=== PATIENT | female | born 1955 | race African-American/Black ===

== ENCOUNTER 2021-09-18 17:44 | Inpatient (IN) | payer MEDICARE ==
[2021-09-18 19:04] LABS: #Eosinphils 0.1 thou/uL (0.0-0.7); #Lymphocytes 2.1 thou/uL (1.20-3.40); #Monocytes 0.5 thou/uL (0.11-0.59); %Basophils 0.5 % (0.0-1.0); %Eosinophils 1.2 % (0.0-10.0); %Lymphocytes 23.7 % (21.0-51.0); %Neutrophils 68.5 % (42.0-75.0); Hemoglobin 9.2 g/dL (12.0-16.0); Mean Corpuscular HGB CONC 31.6 g/dL (32.0-36.0); Mean Corpuscular Hemoglobin 30.5 pg (27.0-31.0); Mean Corpuscular Volume 96.4 fL (78.0-98.0); Platelet Count 322 thou/uL (130-400); Red Blood Cell (RBC) Count 3.01 mill/uL (4.20-5.40); White Blood Cell (WBC) Count 8.7 thou/uL (4.8-10.8)
[2021-09-18 19:14] LABS: PTT 33.3 sec (22.9-36.1)
[2021-09-18 19:15] LABS: Prothrombin Time 14.6 sec (12.0-14.7)
[2021-09-18 19:16] LABS: INR-International Normal Ratio 1.1
[2021-09-18 19:38] LABS: Albumin 4.2 g/dL (3.4-4.8)
[2021-09-18 19:39] LABS: Chloride 117 mmol/L (98-107); Sodium 140 mmol/L (136-145)
[2021-09-18 19:40] LABS: Calcium 9.5 mg/dL (7.8-10.44)
[2021-09-18 19:41] LABS: Globulin 3.5 g/dL (2.4-3.5); Glucose 134 mg/dL (80-115); Protein, Total 7.7 g/dL (5.8-8.1)
[2021-09-18 19:42] LABS: Anion Gap 21 mmol/L (10-20); Bilirubin, Total 0.5 mg/dL (0.2-1.2); Carbon Dioxide 10 mmol/L (23-31)
[2021-09-18 19:44] LABS: Alkaline Phosphatase 59 U/L (40-110); Calc. Creatinine Clearance 0 mL/min (70-130)
[2021-09-18 19:45] LABS: BUN (Urea Nitrogen) 99 mg/dL (9.8-20.1)
[2021-09-18 19:46] LABS: ALT (SGPT) 15 U/L (8-55); AST (SGOT) 18 U/L (5-34)
[2021-09-18 19:47] LABS: Potassium 7.7 mmol/L (3.5-5.1)
[2021-09-18] MEDS ORDERED: Insulin Regular 300 UNITS/3 ML VIAL ONE (20:11)
[2021-09-18] MEDS ORDERED: Calcium Chloride 1 GM/10 ML Abboject SYRINGE ONE (20:11)
[2021-09-18] MEDS ORDERED: Sodium Bicarb 50 MEQ/50 ML Abboject 8.4% SYRINGE ONE (20:11)
[2021-09-18] MEDS ORDERED: Dextrose 50% Abboject 50 ML SYRINGE ONE (20:11)
[2021-09-18] MEDS ORDERED: Sodium Chloride 0.9% 1,000 ML IV SCH (20:45)
[2021-09-18] MEDS ORDERED: Ondansetron ODT 4 MG TAB PO PRN (21:50)
[2021-09-18] MEDS ORDERED: hydrALAZINE 20 MG/ML VIAL SLOW IVP PRN (21:50)
[2021-09-18] MEDS ORDERED: Dextrose 5% in Water 1,000 ML IV PRN (21:50)
[2021-09-18] MEDS ORDERED: Ondansetron PF 4 MG/2 ML Vial IVP PRN (21:50)
[2021-09-18] MEDS ORDERED: Acetaminophen 500 MG TAB PO PRN (21:50)
[2021-09-18] MEDS ORDERED: HumaLOG 300 UNITS/3 ML VIAL SC PRN (21:50)
[2021-09-18] MEDS ORDERED: Dextrose 50% Abboject 50 ML SYRINGE SLOW IVP PRN (21:50)
[2021-09-18 23:10] VITALS: BMI 20.9
[2021-09-19 00:22] LABS: Potassium 6.1 mmol/L (3.5-5.1)
[2021-09-19 00:45] LABS: Amphetamine Not Detected (NotDetected); Barbiturates Screen Not Detected (NotDetected); Benzodiazepine Screen Detected (NotDetected); Cocaine Metabolite Screen Not Detected (NotDetected); Methadone Not Detected (NotDetected); Methamphetamine Not Detected (NotDetected); Opiate Screen Not Detected (NotDetected); Oxycodone Screen Not Detected (NotDetected); Phencyclidine (PCP) Not Detected (NotDetected); THC/Cannabinoid Screen Not Detected (NotDetected); Tricyclic Screen Not Detected (NotDetected)
[2021-09-19] MEDS: Sodium Chloride 0.9% 1,000 ML IV SCH ×2 (00:52→06:27)
[2021-09-19 07:31] LABS: #Eosinphils 0.1 thou/uL (0.0-0.7); #Lymphocytes 1.5 thou/uL (1.20-3.40); #Monocytes 0.9 thou/uL (0.11-0.59); %Basophils 0.2 % (0.0-1.0); %Eosinophils 0.9 % (0.0-10.0); %Lymphocytes 14.7 % (21.0-51.0); %Monocytes 8.1 % (0.0-10.0); %Neutrophils 76.1 % (42.0-75.0); Hemoglobin 8.5 g/dL (12.0-16.0); Mean Corpuscular HGB CONC 32.3 g/dL (32.0-36.0); Mean Corpuscular Hemoglobin 31.5 pg (27.0-31.0); Mean Corpuscular Volume 97.5 fL (78.0-98.0); Mean Platelet Volume 6.3 fL (7.4-10.4); Platelet Count 342 thou/uL (130-400); RBC Distribution Width 11.9 % (11.5-14.5); Red Blood Cell (RBC) Count 2.71 mill/uL (4.20-5.40); White Blood Cell (WBC) Count 10.5 thou/uL (4.8-10.8)
[2021-09-19 07:46] LABS: ALT (SGPT) 15 U/L (8-55); AST (SGOT) 17 U/L (5-34); Alkaline Phosphatase 60 U/L (40-110); Anion Gap 18 mmol/L (10-20); BUN (Urea Nitrogen) 78 mg/dL (9.8-20.1); Bilirubin, Total 0.4 mg/dL (0.2-1.2); Calc. Creatinine Clearance 23 mL/min (70-130); Carbon Dioxide 10 mmol/L (23-31); Chloride 120 mmol/L (98-107); Globulin 3.9 g/dL (2.4-3.5); Glucose 177 mg/dL (80-115); Potassium 6.2 mmol/L (3.5-5.1); Protein, Total 7.9 g/dL (5.8-8.1); Sodium 142 mmol/L (136-145)
[2021-09-19] MEDS ORDERED: Famotidine 40 MG/4 ML VIAL SLOW IVP SCH (09:00)
[2021-09-19] MEDS ORDERED: Clopidogrel Bisulfate 75 MG TAB PO SCH (10:30)
[2021-09-19] MEDS ORDERED: Aspirin 81 mg Enteric Coated Tablet PO SCH (10:30)
[2021-09-19] MEDS: Nitroglycerin 2% Ointment 1 INCH/1 GM Packet TOP SCH ×2 (11:12→18:08)
[2021-09-19] MEDS: Sodium Bicarbonate 150 MEQ in Dextrose 5% in Water 1,000 ML IV SCH ×3 (11:15→21:34)
[2021-09-19] MEDS ORDERED: Famotidine/PF 20 mg/2ml Vial SLOW IVP SCH (12:30)
[2021-09-19 13:21] LABS: Bacteria/HPF 1+ HPF (None Seen); Bilirubin Negative (Negative); Blood, Urine 1+ (Negative); Clarity Clear (Clear); Glucose, Urine (Dipstick) 50 mg/dL (Negative); Ketone, Urine Trace mg/dL (Negative); Leukocyte Negative Leu/uL (Negative); Nitrite Negative (Negative); Protein, Urine (Dipstick) Negative (Neg-Trace); RBC/HPF 0-3 HPF (0-3); Specific Gravity, Urine 1.013 (1.002-1.036); Squamous Epithelial None Seen HPF (0-3); Urine Culture Reflex Yes Yes; Urobilinogen Normal mg/dL (Less than 2); WBC/HPF None Seen HPF (0-3)
[2021-09-19] MEDS: hydrALAZINE 25 MG TAB PO SCH ×3 (14:42→21:35)
[2021-09-19] MEDS ORDERED: Aspirin 300 MG Suppository PR SCH (14:45)
[2021-09-19] MEDS: Carvedilol 6.25 MG TAB PO SCH (17:05)
[2021-09-19 18:19] LABS: Anion Gap 15 mmol/L (10-20); BUN (Urea Nitrogen) 57 mg/dL (9.8-20.1); Calc. Creatinine Clearance 32 mL/min (70-130); Calcium 9.1 mg/dL (7.8-10.44); Carbon Dioxide 18 mmol/L (23-31); Chloride 115 mmol/L (98-107); Glucose 281 mg/dL (80-115); Potassium 4.7 mmol/L (3.5-5.1); Sodium 143 mmol/L (136-145)
[2021-09-19] MEDS: hydrALAZINE 20 MG/ML VIAL SLOW IVP PRN (21:34)
[2021-09-19] MEDS: Folic Acid/Vit B Comp W-C PO SCH (21:35)
[2021-09-19] MEDS: NIRMATRELVIR 150 MG/RITONAVIR 100 MG TABLET PO SCH (21:40)
[2021-09-19] MEDS: HumaLOG 300 UNITS/3 ML VIAL SC PRN (21:40)
[2021-09-20] MEDS: Nitroglycerin 2% Ointment 1 INCH/1 GM Packet TOP SCH (02:48)
[2021-09-20] MEDS: Sodium Bicarbonate 150 MEQ in Dextrose 5% in Water 1,000 ML IV SCH (02:48)
[2021-09-20 04:50] LABS: #Eosinphils 0.1 thou/uL (0.0-0.7); #Lymphocytes 1.6 thou/uL (1.20-3.40); #Monocytes 0.7 thou/uL (0.11-0.59); #Neutrophils 4.3 thou/uL (1.40-6.50); %Basophils 0.3 % (0.0-1.0); %Eosinophils 1.4 % (0.0-10.0); %Lymphocytes 24.2 % (21.0-51.0); %Monocytes 10.4 % (0.0-10.0); %Neutrophils 63.7 % (42.0-75.0); Hemoglobin 7.8 g/dL (12.0-16.0); Mean Corpuscular HGB CONC 33.8 g/dL (32.0-36.0); Mean Corpuscular Hemoglobin 31.5 pg (27.0-31.0); Mean Corpuscular Volume 93.3 fL (78.0-98.0); Mean Platelet Volume 5.9 fL (7.4-10.4); Platelet Count 317 thou/uL (130-400); RBC Distribution Width 11.8 % (11.5-14.5); Red Blood Cell (RBC) Count 2.48 mill/uL (4.20-5.40); White Blood Cell (WBC) Count 6.7 thou/uL (4.8-10.8)
[2021-09-20 04:54] LABS: Phosphorus 3.1 mg/dL (2.3-4.7)
[2021-09-20 04:58] LABS: ALT (SGPT) 13 U/L (8-55); AST (SGOT) 14 U/L (5-34); Albumin 3.4 g/dL (3.4-4.8); Alkaline Phosphatase 56 U/L (40-110); Anion Gap 15 mmol/L (10-20); BUN (Urea Nitrogen) 39 mg/dL (9.8-20.1); Bilirubin, Total 0.5 mg/dL (0.2-1.2); CRP (Inflammatory) 1.84 mg/dL (= or < 0.5); Calc. Creatinine Clearance 36 mL/min (70-130); Calcium 9.1 mg/dL (7.8-10.44); Carbon Dioxide 25 mmol/L (23-31); Chloride 108 mmol/L (98-107); Globulin 3.4 g/dL (2.4-3.5); Glucose 261 mg/dL (80-115); Magnesium 1.3 mg/dL (1.6-2.6); Potassium 3.8 mmol/L (3.5-5.1); Protein, Total 6.8 g/dL (5.8-8.1); Sodium 144 mmol/L (136-145)
[2021-09-20] MEDS ORDERED: Famotidine/PF 20 mg/2ml Vial SLOW IVP SCH (09:00)
[2021-09-20] MEDS ORDERED: Electrolyte Replacement Protocol 1 EACH FS PRN (13:45)
[2021-09-20] MEDS ORDERED: Magnesium Sulfate In Water 4 GM in Premix Bag 1 BAG IVPB SCH (14:00)
[2021-09-20] MEDS: Ascorbic Acid 500 mg Chewable Tablet PO SCH (16:03)
[2021-09-20] MEDS: Multivit, Therapeutic 1 TAB PO SCH (16:03)
[2021-09-20] MEDS: Aspirin 81 mg Enteric Coated Tablet PO SCH (16:03)
[2021-09-20] MEDS: Zinc Sulfate 220 MG CAP PO SCH (16:03)
[2021-09-20] MEDS: Clopidogrel Bisulfate 75 MG TAB PO SCH ×2 (16:03→16:06)
[2021-09-20] MEDS: hydrALAZINE 25 MG TAB PO SCH ×4 (16:03→20:47)
[2021-09-20] MEDS: Heparin 5,000 UNITS/ML VIAL SC SCH ×2 (16:06→20:47)
[2021-09-20] MEDS: Carvedilol 6.25 MG TAB PO SCH ×2 (17:40→19:43)
[2021-09-20] MEDS: NIRMATRELVIR 150 MG/RITONAVIR 100 MG TABLET PO SCH ×2 (17:41→20:53)
[2021-09-20] MEDS: HumaLOG 300 UNITS/3 ML VIAL SC PRN (17:50)
[2021-09-20] MEDS ORDERED: cloNIDine 0.1 MG TAB PO PRN (18:28)
[2021-09-20] MEDS: Sodium Chloride 0.9% 1,000 ML IV SCH (19:41)
[2021-09-20] MEDS: Folic Acid/Vit B Comp W-C PO SCH (20:47)
[2021-09-20] MEDS: Magnesium Oxide 400 MG TAB PO SCH (20:47)
[2021-09-20] MEDS ORDERED: Famotidine 20 MG TAB PO SCH (21:00)
[2021-09-21] MEDS: Sodium Chloride 0.9% 1,000 ML IV SCH ×3 (00:50→20:52)
[2021-09-21 05:06] LABS: ALT (SGPT) 12 U/L (8-55); AST (SGOT) 15 U/L (5-34); Albumin 3.5 g/dL (3.4-4.8); Alkaline Phosphatase 59 U/L (40-110); Anion Gap 14 mmol/L (10-20); BUN (Urea Nitrogen) 26 mg/dL (9.8-20.1); Bilirubin, Total 0.4 mg/dL (0.2-1.2); Calc. Creatinine Clearance 38 mL/min (70-130); Calcium 8.9 mg/dL (7.8-10.44); Carbon Dioxide 27 mmol/L (23-31); Chloride 105 mmol/L (98-107); Globulin 3.4 g/dL (2.4-3.5); Glucose 180 mg/dL (80-115); Magnesium 1.5 mg/dL (1.6-2.6); Phosphorus 3.2 mg/dL (2.3-4.7); Potassium 3.5 mmol/L (3.5-5.1); Protein, Total 6.9 g/dL (5.8-8.1); Sodium 142 mmol/L (136-145)
[2021-09-21 05:16] LABS: Hemoglobin 7.9 g/dL (12.0-16.0); Mean Corpuscular HGB CONC 34.3 g/dL (32.0-36.0); Mean Corpuscular Volume 93.2 fL (78.0-98.0); Mean Platelet Volume 5.9 fL (7.4-10.4); Platelet Count 324 thou/uL (130-400); RBC Distribution Width 11.8 % (11.5-14.5); Red Blood Cell (RBC) Count 2.45 mill/uL (4.20-5.40)
[2021-09-21 05:53] LABS: Band 6 % (5-11); Eosinophils 3 % (0-10); Lymphocytes 33 % (21-51); MDiff Complete? YES; Monocytes 7 % (0-10); Neutrophil 51 % (42-75)
[2021-09-21] MEDS ORDERED: Magnesium 2 GM/50 ML(in water) 2 GM in Premix Bag 1 BAG IVPB SCH (06:45)
[2021-09-21] MEDS ORDERED: Potassium Chloride 20 MEQ TAB PO SCH ×2 (07:00→09:00)
[2021-09-21] MEDS: Clopidogrel Bisulfate 75 MG TAB PO SCH (10:53)
[2021-09-21] MEDS: Zinc Sulfate 220 MG CAP PO SCH (10:54)
[2021-09-21] MEDS: Ascorbic Acid 500 mg Chewable Tablet PO SCH (10:54)
[2021-09-21] MEDS: Multivit, Therapeutic 1 TAB PO SCH (10:54)
[2021-09-21] MEDS: hydrALAZINE 25 MG TAB PO SCH ×4 (10:55→20:49)
[2021-09-21] MEDS: Magnesium Oxide 400 MG TAB PO SCH ×2 (10:55→20:49)
[2021-09-21] MEDS: Famotidine 20 MG TAB PO SCH (10:57)
[2021-09-21] MEDS: Carvedilol 6.25 MG TAB PO SCH ×2 (10:57→17:58)
[2021-09-21] MEDS: Aspirin 81 mg Enteric Coated Tablet PO SCH (10:58)
[2021-09-21] MEDS: HumaLOG 300 UNITS/3 ML VIAL SC PRN ×2 (10:59→20:51)
[2021-09-21] MEDS: NIRMATRELVIR 150 MG/RITONAVIR 100 MG TABLET PO SCH ×2 (11:00→20:49)
[2021-09-21] MEDS: Heparin 5,000 UNITS/ML VIAL SC SCH ×2 (11:05→20:50)
[2021-09-21 13:24] LABS: Potassium 3.7 mmol/L (3.5-5.1)
[2021-09-21] MEDS: Folic Acid/Vit B Comp W-C PO SCH (20:49)
[2021-09-22] MEDS: Heparin 5,000 UNITS/ML VIAL SC SCH ×2 (09:54→21:09)
[2021-09-22] MEDS: Famotidine 20 MG TAB PO SCH (09:54)
[2021-09-22] MEDS: Aspirin 81 mg Enteric Coated Tablet PO SCH (09:54)
[2021-09-22] MEDS: hydrALAZINE 25 MG TAB PO SCH ×4 (09:55→21:07)
[2021-09-22] MEDS: Carvedilol 6.25 MG TAB PO SCH ×2 (09:55→17:36)
[2021-09-22] MEDS: Ascorbic Acid 500 mg Chewable Tablet PO SCH (09:55)
[2021-09-22] MEDS: Multivit, Therapeutic 1 TAB PO SCH (09:56)
[2021-09-22] MEDS: Magnesium Oxide 400 MG TAB PO SCH ×2 (09:56→21:07)
[2021-09-22] MEDS: Zinc Sulfate 220 MG CAP PO SCH (09:56)
[2021-09-22] MEDS: NIRMATRELVIR 150 MG/RITONAVIR 100 MG TABLET PO SCH ×2 (12:11→22:59)
[2021-09-22] MEDS: Sodium Chloride 0.9% 1,000 ML IV SCH (12:13)
[2021-09-22] MEDS: HumaLOG 300 UNITS/3 ML VIAL SC PRN ×2 (12:13→17:37)
[2021-09-22] MEDS: Folic Acid/Vit B Comp W-C PO SCH (21:07)
[2021-09-23] MEDS: Sodium Chloride 0.9% 1,000 ML IV SCH ×2 (04:35→09:26)
[2021-09-23] MEDS: Magnesium Oxide 400 MG TAB PO SCH ×2 (09:19→20:34)
[2021-09-23] MEDS: Ascorbic Acid 500 mg Chewable Tablet PO SCH (09:19)
[2021-09-23] MEDS: Clopidogrel Bisulfate 75 MG TAB PO SCH (09:19)
[2021-09-23] MEDS: Carvedilol 6.25 MG TAB PO SCH ×2 (09:19→17:53)
[2021-09-23] MEDS: Heparin 5,000 UNITS/ML VIAL SC SCH ×2 (09:19→20:34)
[2021-09-23] MEDS: Famotidine 20 MG TAB PO SCH (09:19)
[2021-09-23] MEDS: Zinc Sulfate 220 MG CAP PO SCH (09:19)
[2021-09-23] MEDS: Multivit, Therapeutic 1 TAB PO SCH (09:20)
[2021-09-23] MEDS: NIRMATRELVIR 150 MG/RITONAVIR 100 MG TABLET PO SCH ×2 (09:20→20:40)
[2021-09-23] MEDS: hydrALAZINE 25 MG TAB PO SCH ×3 (09:20→20:34)
[2021-09-23] MEDS: Aspirin 81 mg Enteric Coated Tablet PO SCH (09:20)
[2021-09-23] MEDS: hydrALAZINE 20 MG/ML VIAL SLOW IVP PRN (12:49)
[2021-09-23] MEDS: HumaLOG 300 UNITS/3 ML VIAL SC PRN ×2 (12:49→20:37)
[2021-09-23] MEDS ORDERED: hydrALAZINE 25 MG TAB PO SCH (15:00)
[2021-09-23] MEDS: Folic Acid/Vit B Comp W-C PO SCH (20:34)
[2021-09-24] MEDS: Heparin 5,000 UNITS/ML VIAL SC SCH (08:00)
[2021-09-24] MEDS: hydrALAZINE 25 MG TAB PO SCH (08:00)
[2021-09-24] MEDS: Magnesium Oxide 400 MG TAB PO SCH (08:00)
[2021-09-24] MEDS: Famotidine 20 MG TAB PO SCH (08:00)
[2021-09-24] MEDS: Ascorbic Acid 500 mg Chewable Tablet PO SCH (08:01)
[2021-09-24] MEDS: Clopidogrel Bisulfate 75 MG TAB PO SCH (08:01)
[2021-09-24] MEDS: Carvedilol 6.25 MG TAB PO SCH (08:01)
[2021-09-24] MEDS: Zinc Sulfate 220 MG CAP PO SCH (08:01)
[2021-09-24] MEDS: Multivit, Therapeutic 1 TAB PO SCH (08:01)
[2021-09-24] MEDS: Aspirin 81 mg Enteric Coated Tablet PO SCH (08:01)
[2021-09-24] MEDS ORDERED: Triamterene/Hydrochlorothiazide 37.5 mg/25 mg Tablet PO SCH (09:00)
[2021-09-24] MEDS ORDERED: Amlodipine 5 MG TAB PO SCH (09:00)
[2021-09-24] MEDS: NIRMATRELVIR 150 MG/RITONAVIR 100 MG TABLET PO SCH (10:34)
[2021-09-24] MEDS: HumaLOG 300 UNITS/3 ML VIAL SC PRN (10:57)
[2021-09-24 11:15] LABS: SARS-CoV-2 NAA Rapid Test Not Detected (NotDetected)
[2021-09-24 11:38] VITALS: BP 149/70; TEMP 98.7
== END 2021-09-24 14:51 | disposition home or self-care (01) | DRG 177 ==
LOC: ERS 17:44 → 2NO 20:35
PROVIDERS: ADMIT Family Medicine; ATTEND Internal Medicine
PROC: 8E0ZXY6 Isolation (ICD-10-PCS; principal; 2021-09-18)
DX: U07.1 COVID-19 (principal); G92.8 Other toxic encephalopathy; N17.9 Acute kidney failure, unspecified; E87.2 Acidosis; E87.5 Hyperkalemia; T43.591A Poisoning by other antipsychotics and neuroleptics, accidental (unintentional), initial encounter; E78.5 Hyperlipidemia, unspecified; E86.0 Dehydration; I12.9 Hypertensive chronic kidney disease with stage 1 through stage 4 chronic kidney disease, or unspecified chronic kidney disease; N18.30 Chronic kidney disease, stage 3 unspecified; E11.22 Type 2 diabetes mellitus with diabetic chronic kidney disease; E83.42 Hypomagnesemia; Z72.89 Other problems related to lifestyle; Z86.73 Personal history of transient ischemic attack (TIA), and cerebral infarction without residual deficits; Z79.84 Long term (current) use of oral hypoglycemic drugs; Z79.899 Other long term (current) drug therapy; Z79.02 Long term (current) use of antithrombotics/antiplatelets; Z79.82 Long term (current) use of aspirin
CPT/HCPCS: 36415; 36416; 70450; 71045; 80053; 80306; 81001; 83735; 84100; 84484; 85025; 85610; 85730; 86140; 87077; 87086; 93005; 96374; 96375; J0360; J1644; J1815; J3475; J7050; J7070; J7999; S0028; U0002; U0003; U0005

== ENCOUNTER 2022-01-22 11:45 | Inpatient (IN) | payer MEDICARE ==
[2022-01-27] MEDS ORDERED: fentaNYL Citrate/PF 100 MCG/2 ML SYRINGE ONE (06:22)
[2022-01-27] MEDS ORDERED: Protamine Sulfate 50 MG/5 ML VIAL ONE (06:47)
[2022-01-27] MEDS ORDERED: Bupivacaine 0.25% HCL 30 ML VIAL ONE (06:47)
[2022-01-27] MEDS ORDERED: Dexamethasone 4 mg/ml Vial ONE (06:47)
[2022-01-27] MEDS ORDERED: Heparin 5,000 UNITS/ML VIAL ONE (06:47)
[2022-01-27] MEDS ORDERED: EPINEPHrine 1 MG/10 ML Abboject SYRINGE ONE (06:47)
[2022-01-27] MEDS ORDERED: CEFAZOLIN 2 GM VIAL ONE (07:16)
[2022-01-27] MEDS ORDERED: Sodium Chloride 0.9% 100 ML ONE (07:16)
[2022-01-27 07:28] LABS: SARS-CoV-2 NAA Rapid Test Not Detected (NotDetected)
[2022-01-27] MEDS ORDERED: Rocuronium Bromide 10 MG/ML (10ML VIAL) ONE (08:01)
[2022-01-27] MEDS ORDERED: Labetalol HCl 100 MG/20 ML VIAL ONE (08:01)
[2022-01-27] MEDS ORDERED: PROPOFOL 200 MG/20 ML VIAL ONE (08:01)
[2022-01-27] MEDS ORDERED: PHENYLEPHRINE-NS 100 MCG/ML 10 ML SYRINGE ONE (08:01)
[2022-01-27] MEDS ORDERED: Ondansetron PF 4 MG/2 ML Vial ONE (08:01)
[2022-01-27] MEDS ORDERED: SUGAMMADEX SODIUM 200 MG/2 ML VIAL ONE (08:59)
[2022-01-27] MEDS ORDERED: Fentanyl 100 MCG/2 ML VIAL SLOW IVP PRN (09:07)
[2022-01-27] MEDS ORDERED: Insulin Regular 300 UNITS/3 ML VIAL SC PRN (09:07)
[2022-01-27] MEDS ORDERED: Ondansetron PF 4 MG/2 ML Vial IVP PRN (09:07)
[2022-01-27] MEDS ORDERED: Nitroglycerin 50 MG/250 ML BOT 250 ML IVPB PRN (09:07)
[2022-01-27] MEDS ORDERED: Promethazine HCl 25 MG/ML VIAL IM PRN (09:07)
[2022-01-27] MEDS ORDERED: Acetaminophen 325 MG TAB PO PRN (09:07)
[2022-01-27] MEDS ORDERED: Phenylephrine 40 MG/NS 250 ML 40 MG in Premix Bag 1 BAG IVPB PRN (10:02)
[2022-01-27] MEDS ORDERED: Dextrose 50% Abboject 50 ML SYRINGE IVP PRN (10:15)
[2022-01-27] MEDS ORDERED: Dextrose 5% in Water 1,000 ML IV PRN (10:15)
[2022-01-27 11:20] VITALS: BMI 19.9
[2022-01-27] MEDS: Sodium Chloride 0.9% 1,000 ML IV SCH ×2 (11:33→16:06)
[2022-01-27] MEDS ORDERED: FLU VACC QS2022-23(65YR UP)/PF 240 MCG/0.7 ML SYRINGE IM ONE (12:30)
[2022-01-27] MEDS ORDERED: hydrALAZINE 25 MG TAB PO SCH (13:00)
[2022-01-27] MEDS: CEFAZOLIN 2 GM in Sodium Chloride 0.9% 100 ML IVPB SCH ×2 (14:16→22:04)
[2022-01-27] MEDS: metFORMIN 500 MG TAB PO SCH (16:05)
[2022-01-27] MEDS: Carvedilol 6.25 MG TAB PO SCH (16:05)
[2022-01-27] MEDS: Alogliptin 6.25 MG TAB PO SCH (16:38)
[2022-01-27] MEDS: hydrALAZINE 25 MG TAB PO SCH (19:59)
[2022-01-27] MEDS: traMADol HCl 50 MG TAB PO PRN (19:59)
[2022-01-27] MEDS ORDERED: Atorvastatin Calcium 40 MG TAB PO SCH (21:00)
[2022-01-28] MEDS: Sodium Chloride 0.9% 1,000 ML IV SCH (04:15)
[2022-01-28] MEDS: CEFAZOLIN 2 GM in Sodium Chloride 0.9% 100 ML IVPB SCH (07:12)
[2022-01-28] MEDS: metFORMIN 500 MG TAB PO SCH (07:16)
[2022-01-28] MEDS: Carvedilol 6.25 MG TAB PO SCH (07:17)
[2022-01-28] MEDS: hydrALAZINE 25 MG TAB PO SCH (08:10)
[2022-01-28] MEDS: Alogliptin 6.25 MG TAB PO SCH (08:11)
[2022-01-28 08:27] VITALS: BP 122/87
[2022-01-28] MEDS ORDERED: Aspirin 81 mg Enteric Coated Tablet PO SCH (09:00)
[2022-01-28] MEDS ORDERED: Gabapentin 100 MG CAP PO PRN (09:00)
[2022-01-28] MEDS ORDERED: Clopidogrel Bisulfate 75 MG TAB PO SCH (09:00)
[2022-01-28 11:34] VITALS: TEMP 98
[2022-01-28] MEDS: traMADol HCl 50 MG TAB PO PRN (11:46)
[2022-01-28] MEDS ORDERED: FLU VACC QS2022-23(65YR UP)/PF 240 MCG/0.7 ML SYRINGE IM ONE (18:00)
== END 2022-01-28 12:52 | disposition home or self-care (01) | DRG 36 ==
LOC: SURG A 01-27 06:16 → CCU 01-27 10:44
PROVIDERS: ADMIT Thoracic Surgery (Cardiothoracic Vascular Surgery); ATTEND Thoracic Surgery (Cardiothoracic Vascular Surgery)
PROC: 037J3DZ Dilation of Left Common Carotid Artery with Intraluminal Device, Percutaneous Approach (ICD-10-PCS; principal; 2022-01-27)
DX: I65.22 Occlusion and stenosis of left carotid artery (principal); Z20.822 Contact with and (suspected) exposure to COVID-19; E11.9 Type 2 diabetes mellitus without complications; I10 Essential (primary) hypertension; E78.2 Mixed hyperlipidemia; Z79.02 Long term (current) use of antithrombotics/antiplatelets; Z86.73 Personal history of transient ischemic attack (TIA), and cerebral infarction without residual deficits; Z79.82 Long term (current) use of aspirin; Z79.899 Other long term (current) drug therapy; Z86.16 Personal history of COVID-19; Z82.49 Family history of ischemic heart disease and other diseases of the circulatory system; Z82.3 Family history of stroke; Z83.3 Family history of diabetes mellitus
CPT/HCPCS: 36416; 94640; C1725; C1769; C1876; C1884; J0171; J1100; J1642; J1644; J2405; J2704; J2720; J3490; J7050; J7620; S0020; U0002

== ENCOUNTER 2022-01-22 12:07 | Outpatient (CLI) | payer MEDICARE ==
[2022-01-22 13:51] LABS: Hemoglobin 10.8 g/dL (12.0-15.5); Mean Corpuscular HGB CONC 32.7 g/dL (32.0-36.0); Mean Corpuscular Hemoglobin 28.8 pg (27.0-33.0); Mean Platelet Volume 9.7 fl (7.4-10.4); Platelet Count 281 10x3/uL (150-450); RBC Distribution Width 14.6 % (11.5-14.5); Red Blood Cell (RBC) Count 3.75 10x6/uL (3.90-5.03); White Blood Cell (WBC) Count 6.9 10x3/uL (3.5-10.5)
[2022-01-22 14:08] LABS: Anion Gap 18 mmol/L (10-20); BUN (Urea Nitrogen) 24 mg/dL (9.8-20.1); Calc. Creatinine Clearance 0 mL/min (70-130); Calcium 9.8 mg/dL (7.8-10.44); Carbon Dioxide 19 mmol/L (23-31); Chloride 109 mmol/L (98-107); Estimated GFR 45; Glucose 145 mg/dL (80-115); Potassium 4.5 mmol/L (3.5-5.1); Sodium 141 mmol/L (136-145)
== END 2022-01-22 12:08 | disposition home or self-care (01) ==
LOC: LABBT 12:07
PROVIDERS: ATTEND Thoracic Surgery (Cardiothoracic Vascular Surgery)
DX: Z01.812 Encounter for preprocedural laboratory examination (principal); I65.22 Occlusion and stenosis of left carotid artery
CPT/HCPCS: 80048; 85027

== ENCOUNTER 2022-05-15 07:20 | Inpatient (IN) | payer OTHER, MEDICAID ==
[~2022-05-15 07:20] MED LIST: EPINEPHrine 0.3 MG, Dextrose 50% 3 ML in Ophthalmic Irrigation Solution 500 ML IVP SCH; Midazolam HCl 2 mg/2 ml Vial ONE; fentaNYL PF 100 MCG/2 ML SYRINGE ONE
[2022-05-15] MEDS ORDERED: Phenylephrine 2.5% Ophth Soln 5 ML BOT ONE (07:45)
[2022-05-15] MEDS ORDERED: Cyclopentolate 1% Opth Drop 2 ML BOT ONE (07:45)
[2022-05-15] MEDS ORDERED: Lidocaine 1% MPF 2 ML VIAL ONE (08:13)
[2022-05-15 09:11] LABS: Hemoglobin 5.8 g/dL (12.0-16.0)
[2022-05-15] MEDS ORDERED: Acetaminophen 325 MG TAB PO PRN (10:12)
[2022-05-15] MEDS ORDERED: Dextrose 50% Abboject 50 ML SYRINGE SLOW IVP PRN (10:24)
[2022-05-15] MEDS ORDERED: HumaLOG 300 UNITS/3 ML VIAL SC PRN ×2 (10:24)
[2022-05-15] MEDS ORDERED: Dextrose 5% in Water 1,000 ML IV PRN (10:24)
[2022-05-15 11:34] LABS: #Eosinphils 0.1 thou/uL (0.0-0.7); #Lymphocytes 1.7 thou/uL (1.20-3.40); #Monocytes 0.4 thou/uL (0.11-0.59); #Neutrophils 4.8 thou/uL (1.40-6.50); %Basophils 0.4 % (0.0-1.0); %Eosinophils 1.3 % (0.0-10.0); %Lymphocytes 24.1 % (21.0-51.0); %Neutrophils 68.2 % (42.0-75.0); Hemoglobin 5.7 g/dL (12.0-16.0); Mean Corpuscular HGB CONC 30.9 g/dL (32.0-36.0); Mean Corpuscular Hemoglobin 23.9 pg (27.0-31.0); Mean Corpuscular Volume 77.6 fl (78.0-98.0); Platelet Count 311 10x3/uL (130-400); RBC Distribution Width 18.4 % (11.5-14.5); Red Blood Cell (RBC) Count 2.38 mill/uL (4.20-5.40)
[2022-05-15 11:48] LABS: ALT (SGPT) 13 U/L (8-55); AST (SGOT) 18 U/L (5-34); Albumin 3.9 g/dL (3.4-4.8); Alkaline Phosphatase 59 U/L (40-110); Anion Gap 16 mmol/L (10-20); BUN (Urea Nitrogen) 31 mg/dL (9.8-20.1); Bilirubin, Total 0.3 mg/dL (0.2-1.2); Calc. Creatinine Clearance 46 mL/min (70-130); Calcium 9.6 mg/dL (7.8-10.44); Carbon Dioxide 14 mmol/L (23-31); Chloride 111 mmol/L (98-107); Estimated GFR 47; Globulin 3.4 g/dL (2.4-3.5); Glucose 175 mg/dL (80-115); Iron 17 ug/dL (50-170); Iron Binding Capacity, Total 389 mcg/dL (265-497); Potassium 4.8 mmol/L (3.5-5.1); Protein, Total 7.3 g/dL (5.8-8.1); Sodium 136 mmol/L (136-145)
[2022-05-15 11:52] LABS: Prothrombin Time 13.5 sec (12.0-14.7)
[2022-05-15 12:11] LABS: Ferritin 7.26 ng/mL (10-291)
[2022-05-15 12:17] LABS: SARS-CoV-2 NAA Rapid Test Not Detected (NotDetected)
[2022-05-15 13:09] VITALS: BMI 19.8
[2022-05-15] MEDS: Sodium Bicarbonate Tab 325 MG TAB PO SCH ×2 (15:34→20:02)
[2022-05-15] MEDS ORDERED: GoLYTELY 4,000 ml Bottle PO SCH (17:00)
[2022-05-15] MEDS: Carvedilol 6.25 MG TAB PO SCH (17:42)
[2022-05-15] MEDS: hydrALAZINE 25 MG TAB PO SCH (20:01)
[2022-05-15] MEDS: Gabapentin 100 MG CAP PO SCH (20:02)
[2022-05-15] MEDS: Atorvastatin Calcium 40 MG TAB PO SCH (20:02)
[2022-05-15 21:50] LABS: Bacteria/HPF None Seen HPF (None Seen); Bilirubin Negative (Negative); Blood, Urine Negative (Negative); Clarity Clear (Clear); Glucose, Urine (Dipstick) 150 mg/dL (Negative); Ketone, Urine Negative (Negative); Leukocyte 25 Leu/uL (Negative); Nitrite Negative (Negative); Protein, Urine (Dipstick) Negative (Neg-Trace); RBC/HPF 0-3 HPF (0-3); Squamous Epithelial 0-3 HPF (0-3); Urobilinogen Normal mg/dL (Less than 2); WBC/HPF 0-3 HPF (0-3)
[2022-05-15 23:40] LABS: Hemoglobin 8.7 g/dL (12.0-16.0)
[2022-05-16 05:06] LABS: #Eosinphils 0.1 thou/uL (0.0-0.7); #Lymphocytes 1.7 thou/uL (1.20-3.40); #Monocytes 0.8 thou/uL (0.11-0.59); #Neutrophils 4.5 thou/uL (1.40-6.50); %Basophils 0.5 % (0.0-1.0); %Eosinophils 1.3 % (0.0-10.0); %Lymphocytes 23.5 % (21.0-51.0); %Monocytes 10.8 % (0.0-10.0); %Neutrophils 63.9 % (42.0-75.0); Hemoglobin 8.6 g/dL (12.0-16.0); Mean Corpuscular HGB CONC 32.4 g/dL (32.0-36.0); Mean Corpuscular Hemoglobin 26.2 pg (27.0-31.0); Mean Corpuscular Volume 80.8 fl (78.0-98.0); Mean Platelet Volume 7.8 fL (7.4-10.4); Platelet Count 312 10x3/uL (130-400); RBC Distribution Width 17.6 % (11.5-14.5); Red Blood Cell (RBC) Count 3.29 mill/uL (4.20-5.40); White Blood Cell (WBC) Count 7.1 10x3/uL (4.8-10.8)
[2022-05-16 05:20] LABS: Anion Gap 14 mmol/L (10-20); BUN (Urea Nitrogen) 19 mg/dL (9.8-20.1); Calc. Creatinine Clearance 58 mL/min (70-130); Carbon Dioxide 20 mmol/L (23-31); Chloride 108 mmol/L (98-107); Estimated GFR 74; Glucose 107 mg/dL (80-115); Potassium 3.9 mmol/L (3.5-5.1); Sodium 138 mmol/L (136-145)
[2022-05-16] MEDS ORDERED: Fleet Enema 133 ML BOT PR SCH (08:00)
[2022-05-16] MEDS: hydrALAZINE 25 MG TAB PO SCH ×2 (08:22→19:43)
[2022-05-16] MEDS: Carvedilol 6.25 MG TAB PO SCH ×2 (08:23→16:03)
[2022-05-16] MEDS: Sodium Bicarbonate Tab 325 MG TAB PO SCH ×3 (08:23→19:43)
[2022-05-16] MEDS ORDERED: Magnevist 469MG/ML 20 ML VIAL ONE (09:02)
[2022-05-16] MEDS ORDERED: PROPOFOL 200 MG/20 ML VIAL ONE (11:09)
[2022-05-16] MEDS ORDERED: Lidocaine 1% PF 5 ML VIAL ONE (11:09)
[2022-05-16] MEDS ORDERED: PHENYLEPHRINE-NS 100 MCG/ML 10 ML SYRINGE ONE (11:09)
[2022-05-16] MEDS ORDERED: Ondansetron HCl/PF 4 MG/2 ML Vial IVP PRN (11:44)
[2022-05-16] MEDS: Atorvastatin Calcium 40 MG TAB PO SCH (19:43)
[2022-05-16] MEDS: Gabapentin 100 MG CAP PO SCH (19:43)
[2022-05-17 06:36] LABS: Hemoglobin 8.9 g/dL (12.0-16.0); Mean Corpuscular HGB CONC 33.5 g/dL (32.0-36.0); Mean Corpuscular Hemoglobin 27.1 pg (27.0-31.0); Mean Corpuscular Volume 80.9 fl (78.0-98.0); Mean Platelet Volume 7.8 fL (7.4-10.4); Platelet Count 288 10x3/uL (130-400); RBC Distribution Width 18.2 % (11.5-14.5); Red Blood Cell (RBC) Count 3.27 mill/uL (4.20-5.40); White Blood Cell (WBC) Count 6.7 10x3/uL (4.8-10.8)
[2022-05-17 06:40] LABS: #Eosinphils 0.2 thou/uL (0.0-0.7); #Monocytes 0.6 thou/uL (0.11-0.59); #Neutrophils 3.6 thou/uL (1.40-6.50); %Basophils 0.4 % (0.0-1.0); %Eosinophils 2.6 % (0.0-10.0); %Lymphocytes 30.6 % (21.0-51.0); %Monocytes 9.9 % (0.0-10.0); %Neutrophils 56.5 % (42.0-75.0)
[2022-05-17 06:45] LABS: Anion Gap 13 mmol/L (10-20); BUN (Urea Nitrogen) 12 mg/dL (9.8-20.1); Calc. Creatinine Clearance 57 mL/min (70-130); Calcium 8.8 mg/dL (7.8-10.44); Carbon Dioxide 22 mmol/L (23-31); Chloride 109 mmol/L (98-107); Estimated GFR 72; Glucose 104 mg/dL (80-115); Potassium 3.5 mmol/L (3.5-5.1); Sodium 140 mmol/L (136-145)
[2022-05-17] MEDS: Sodium Bicarbonate Tab 325 MG TAB PO SCH (08:40)
[2022-05-17] MEDS: hydrALAZINE 25 MG TAB PO SCH (08:40)
[2022-05-17] MEDS: Carvedilol 6.25 MG TAB PO SCH (08:41)
[2022-05-17 11:32] VITALS: BP 125/72; TEMP 97.8
== END 2022-05-17 15:09 | disposition home or self-care (01) | DRG 378 ==
LOC: SDC 07:20 → 2SW 12:33 → T4-A 05-16 18:47 → OBSVTOIN 05-16 19:25
PROVIDERS: ADMIT Family Medicine; ATTEND Internal Medicine
PROC: 30233N1 Transfusion of Nonautologous Red Blood Cells into Peripheral Vein, Percutaneous Approach (ICD-10-PCS; 2022-05-15)
PROC: 0DB78ZX Excision of Stomach, Pylorus, Via Natural or Artificial Opening Endoscopic, Diagnostic (ICD-10-PCS; principal; 2022-05-16)
PROC: 0DBP8ZX Excision of Rectum, Via Natural or Artificial Opening Endoscopic, Diagnostic (ICD-10-PCS; 2022-05-16)
DX: K26.4 Chronic or unspecified duodenal ulcer with hemorrhage (principal); E87.20 Acidosis, unspecified; H33.41 Traction detachment of retina, right eye; D50.9 Iron deficiency anemia, unspecified; E78.5 Hyperlipidemia, unspecified; N18.30 Chronic kidney disease, stage 3 unspecified; E11.22 Type 2 diabetes mellitus with diabetic chronic kidney disease; K29.70 Gastritis, unspecified, without bleeding; K29.80 Duodenitis without bleeding; I12.9 Hypertensive chronic kidney disease with stage 1 through stage 4 chronic kidney disease, or unspecified chronic kidney disease; E11.51 Type 2 diabetes mellitus with diabetic peripheral angiopathy without gangrene; D37.5 Neoplasm of uncertain behavior of rectum; Z20.822 Contact with and (suspected) exposure to COVID-19; Z98.890 Other specified postprocedural states; Z86.73 Personal history of transient ischemic attack (TIA), and cerebral infarction without residual deficits
CPT/HCPCS: 36415; 36416; 36430; 72196; 80048; 80053; 81001; 82274; 82607; 82728; 83540; 83550; 84443; 85014; 85018; 85025; 85610; 86850; 86900; 86901; 88305; 93005; 93010; A9579; G0378; J0171; J1815; J2250; J2704; P9016; U0002

== ENCOUNTER 2022-05-29 05:59 | Day surgery (SDC) | payer OTHER, MEDICAID ==
[2022-05-28 10:42] VITALS: BMI 20.5
[~2022-05-29 05:59] MED LIST changes: +EPINEPHrine 0.3 MG, Dextrose 50% 3 ML in Ophthalmic Irrigation Solution 500 ML IRR SCH; -EPINEPHrine 0.3 MG, Dextrose 50% 3 ML in Ophthalmic Irrigation Solution 500 ML IVP SCH; -Midazolam HCl 2 mg/2 ml Vial ONE; -fentaNYL PF 100 MCG/2 ML SYRINGE ONE
[2022-05-29] MEDS ORDERED: Cyclopentolate 1% Opth Drop 2 ML BOT ONE (06:26)
[2022-05-29] MEDS ORDERED: Phenylephrine 2.5% Ophth Soln 5 ML BOT ONE (06:26)
[2022-05-29] MEDS ORDERED: Midazolam HCl 2 mg/2 ml Vial ONE (06:39)
[2022-05-29] MEDS ORDERED: fentaNYL PF 100 MCG/2 ML SYRINGE ONE (06:39)
[2022-05-29] MEDS ORDERED: Lidocaine 4% PF 5 ML AMP ONE (07:49)
[2022-05-29] MEDS ORDERED: Triamcinolone 40 MG/ML VIAL ONE (07:49)
[2022-05-29] MEDS ORDERED: Bupivacaine 0.75% 10 ML VIAL ONE (07:49)
[2022-05-29] MEDS ORDERED: Maxitrol 0.1% Opth Oint 3.5 GM TUBE ONE (07:49)
[2022-05-29] MEDS ORDERED: PROPOFOL 200 MG/20 ML VIAL ONE (07:49)
[2022-05-29] MEDS ORDERED: Lidocaine 1% PF 5 ML VIAL ONE (07:49)
[2022-05-29] MEDS ORDERED: CEFAZOLIN 1 GM VIAL ONE (07:49)
[2022-05-29] MEDS ORDERED: hydrALAZINE 20 MG/ML VIAL ONE (09:39)
== END 2022-05-29 10:13 | disposition home or self-care (01) ==
LOC: SDC 05:59
PROVIDERS: ATTEND Ophthalmology Retina Specialist
PROC: 08T43ZZ Resection of Right Vitreous, Percutaneous Approach (ICD-10-PCS; principal; 2022-05-29)
PROC: 08QE3ZZ Repair Right Retina, Percutaneous Approach (ICD-10-PCS; 2022-05-29)
DX: H33.41 Traction detachment of retina, right eye (principal); H35.61 Retinal hemorrhage, right eye; E11.9 Type 2 diabetes mellitus without complications; Z79.02 Long term (current) use of antithrombotics/antiplatelets; Z79.82 Long term (current) use of aspirin; Z79.84 Long term (current) use of oral hypoglycemic drugs; Z79.899 Other long term (current) drug therapy
CPT/HCPCS: 67025; 67108; J0360; J0171; J0690; J2250; J2704; J3301; J3490

== ENCOUNTER 2025-02-24 22:01 | Inpatient (IN) | payer MEDICARE, MEDICAID ==
[~2025-02-24 22:01] MED LIST changes: -EPINEPHrine 0.3 MG, Dextrose 50% 3 ML in Ophthalmic Irrigation Solution 500 ML IRR SCH; +Iopamidol-370 76% 500 ML MDV (1 ML CHARGE) ONE
[2025-02-24 22:22] LABS: #Basophils Less than 0.03 10x3/uL (0.0-0.2); #Eosinophils Less than 0.03 10x3/uL (0.0-0.7); #Monocytes 0.50 10x3/uL (0.11-0.59); #Neutrophils 5.77 10x3/uL (1.40-6.50); %Basophils 0.3 % (0.0-1.0); %Eosinophils 0.3 % (0.0-10.0); %Lymphocytes 12.4 % (21.0-51.0); %Monocytes 6.9 % (0.0-10.0); %Neutrophils 79.8 % (42.0-75.0); Hematocrit 29.0 % (36.0-47.0); Hemoglobin 9.1 g/dL (12.0-16.0); Mean Corpuscular Hemoglobin 28.6 pg (27.0-31.0); Mean Corpuscular Volume 91.2 fL (78.0-98.0); Platelet Count 334 10x3/uL (130-400); Red Blood Cell (RBC) Count 3.18 mill/uL (4.20-5.40); White Blood Cell (WBC) Count 7.23 10x3/uL (4.8-10.8)
[2025-02-24] MEDS ORDERED: Etomidate 40 MG (20 mL) VIAL ONE (22:22)
[2025-02-24] MEDS ORDERED: Rocuronium Bromide 10 MG/ML (10ML VIAL) ONE (22:23)
[2025-02-24 22:38] LABS: INR-International Normal Ratio 1.1; PTT 32.6 sec (22.9-36.1); Prothrombin Time 14.7 sec (12.0-14.7)
[2025-02-24 22:43] LABS: ALT (SGPT) 12 U/L (Less than 34); AST (SGOT) 24 U/L (11-34); Albumin 3.0 g/dL (3.1-4.5); Alkaline Phosphatase 71 U/L (40-110); Anion Gap 21 mmol/L (10-20); BUN (Urea Nitrogen) 45 mg/dL (9.8-20.1); Bilirubin, Total 0.2 mg/dL (0.3-1.2); Calc. Creatinine Clearance 0 mL/min (70-130); Calcium 8.9 mg/dL (7.8-10.44); Carbon Dioxide 15 mmol/L (23-31); Chloride 115 mmol/L (98-107); Globulin 4.6 g/dL (2.4-3.5); Glucose 599 mg/dL (83-110); Magnesium 1.9 mg/dL (1.6-2.6); Potassium 5.4 mmol/L (3.5-5.1); Sodium 146 mmol/L (136-145)
[2025-02-24 22:48] LABS: Actual Bicarbonate (HCO3a) 17.2 mEq/L (22-28); Analyzer IN Cardio ER; Base Excess (BEa) -8.1 mEq/L (-2.0 to +3.0); CO2 Tension 34.7 mmHg (35.0-45.0); Calcium, Ionized (arterial) 1.22 mmol/L (1.12-1.30); Hematocrit-ABG 29 % (36.0-47.0); Hemoglobin (Hb) 9.7 g/dL (12.0-16.0); O2 Tension (PaO2), arterial 223.7 mmHg (> 70.0); Potassium - ABG Lab 4.39 mmol/L (3.70-5.30); pH, Arterial 7.314 (7.35-7.45)
[2025-02-24 23:00] LABS: Puncture Site Left Brachial artery
[2025-02-24 23:01] LABS: ALV-art Gradient 89.425 mmHg (0-20)
[2025-02-24] MEDS ORDERED: niCARdipine 25 MG/10 ML SDV ONE (23:03)
[2025-02-24] MEDS ORDERED: levETIRAcetam 500 MG (5 mL) VIAL ONE (23:12)
[2025-02-24 23:28] LABS: Bacteria/HPF 4+ HPF (None Seen); CAUTI Indications for Culture Alt mental st,lethar; Glucose, Urine (Dipstick) Greater than 1000 mg/dL (Negative); Leukocyte 250 Leu/uL (Negative); Protein, Urine (Dipstick) 30 mg/dL (Neg-Trace); RBC/HPF 0-3 HPF (0-3); Specific Gravity, Urine 1.023 (1.002-1.036); WBC/HPF Greater than 50 HPF (0-3)
[2025-02-24 23:31] LABS: Urine Culture Reflex Yes Yes
[2025-02-25] MEDS ORDERED: cefTRIAXone (ROCEPHIN) 2 GM VIAL ONE (00:03)
[2025-02-25] MEDS ORDERED: INSULIN REGULAR IN 0.9 % NACL 100 ML ONE (00:03)
[2025-02-25] MEDS ORDERED: Sodium Bicarb 50 MEQ/50 ML Abboject 8.4% SYRINGE ONE (00:21)
[2025-02-25] MEDS ORDERED: Ondansetron PF 4 MG/2 ML Vial IVP PRN (00:45)
[2025-02-25] MEDS: Ventilator Sedation Protocol 1 EACH FS ONE (01:25)
[2025-02-25] MEDS ORDERED: Fentanyl BOLUS 100 ML IVPB PRN (01:30)
[2025-02-25] MEDS ORDERED: DISCONTINUE PREVIOUS NARCOTIC PAIN MEDICATIONS AND BENZODIAZEPINES FS SCH (01:30)
[2025-02-25] MEDS ORDERED: Propofol BOLUS 1,000 MG/100 ML VIAL IV PRN (01:30)
[2025-02-25] MEDS ORDERED: Dextrose 50% Abboject 50 ML SYRINGE SLOW IVP PRN ×2 (01:48→10:09)
[2025-02-25] MEDS ORDERED: NS 0.9% w/ 20 MEQ KCL 1,000 ML IV PRN ×2 (01:48)
[2025-02-25] MEDS ORDERED: Potassium Chloride 20 MEQ in Premix 1 BAG IVPB PRN (02:00)
[2025-02-25] MEDS ORDERED: INSULIN REGULAR IN 0.9 % NACL 100 ML IVPB SCH (02:00)
[2025-02-25] MEDS ORDERED: PHOS-NAK 1 PKT PACK PO PRN (02:00)
[2025-02-25] MEDS ORDERED: niCARdipine 25 MG in Sodium Chloride 0.9% 250 ML 250 ML IVPB SCH (02:30)
[2025-02-25 02:41] LABS: Osmolality, Serum 345 mOsm/kg (280-301)
[2025-02-25 02:46] LABS: Anion Gap 19 mmol/L (10-20); BUN (Urea Nitrogen) 42 mg/dL (9.8-20.1); Calc. Creatinine Clearance 25 mL/min (70-130); Calcium 8.7 mg/dL (7.8-10.44); Carbon Dioxide 16 mmol/L (23-31); Chloride 118 mmol/L (98-107); Glucose 473 mg/dL (83-110); Potassium 3.7 mmol/L (3.5-5.1); Sodium 149 mmol/L (136-145)
[2025-02-25 03:35] LABS: #Basophils Less than 0.03 10x3/uL (0.0-0.2); #Eosinophils Less than 0.03 10x3/uL (0.0-0.7); #Monocytes 0.19 10x3/uL (0.11-0.59); #Neutrophils 4.51 10x3/uL (1.40-6.50); %Basophils 0.3 % (0.0-1.0); %Eosinophils 0.2 % (0.0-10.0); %Lymphocytes 20.2 % (21.0-51.0); %Monocytes 3.2 % (0.0-10.0); %Neutrophils 75.8 % (42.0-75.0); Hematocrit 28.2 % (36.0-47.0); Hemoglobin 8.7 g/dL (12.0-16.0); Mean Corpuscular Hemoglobin 28.2 pg (27.0-31.0); Mean Corpuscular Volume 91.6 fL (78.0-98.0); Platelet Count 330 10x3/uL (130-400); Red Blood Cell (RBC) Count 3.08 mill/uL (4.20-5.40); White Blood Cell (WBC) Count 5.95 10x3/uL (4.8-10.8)
[2025-02-25 03:52] LABS: Magnesium 1.8 mg/dL (1.6-2.6)
[2025-02-25] MEDS: D5 1/2 NS w/20 mEq KCL 1,000 ML IV PRN (05:37)
[2025-02-25 06:25] LABS: Anion Gap 15 mmol/L (10-20); BUN (Urea Nitrogen) 37 mg/dL (9.8-20.1); Calc. Creatinine Clearance 29 mL/min (70-130); Calcium 8.8 mg/dL (7.8-10.44); Carbon Dioxide 19 mmol/L (23-31); Chloride 120 mmol/L (98-107); Glucose 251 mg/dL (83-110); Potassium 3.4 mmol/L (3.5-5.1); Sodium 151 mmol/L (136-145)
[2025-02-25 08:06] LABS: Actual Bicarbonate (HCO3a) 21.2 mEq/L (22-28); Base Excess (BEa) -0.9 mEq/L (-2.0 to +3.0); CO2 Tension 26.0 mmHg (35.0-45.0); Calcium, Ionized (arterial) 1.18 mmol/L (1.12-1.30); Hematocrit-ABG 25 % (36.0-47.0); Hemoglobin (Hb) 8.6 g/dL (12.0-16.0); O2 Tension (PaO2), arterial 108.6 mmHg (> 70.0); Potassium - ABG Lab 3.05 mmol/L (3.70-5.30); pH, Arterial 7.529 (7.35-7.45)
[2025-02-25 08:07] LABS: Puncture Site Left Brachial artery
[2025-02-25 08:08] LABS: ALV-art Gradient 144.100 mmHg (0-20)
[2025-02-25] MEDS: Pantoprazole 40 MG VIAL IVP SCH (09:42)
[2025-02-25] MEDS: levETIRAcetam 500 MG (5 mL) VIAL SLOW IVP SCH (09:42)
[2025-02-25] MEDS: Heparin 5,000 UNITS/ML VIAL SC SCH (09:43)
[2025-02-25] MEDS ORDERED: Glucagon 1 MG/ML KIT IM PRN (10:09)
[2025-02-25 10:23] LABS: Anion Gap 14 mmol/L (10-20); BUN (Urea Nitrogen) 33 mg/dL (9.8-20.1); Calc. Creatinine Clearance 31 mL/min (70-130); Calcium 8.4 mg/dL (7.8-10.44); Carbon Dioxide 19 mmol/L (23-31); Chloride 120 mmol/L (98-107); Glucose 203 mg/dL (83-110); Potassium 3.3 mmol/L (3.5-5.1); Sodium 150 mmol/L (136-145)
[2025-02-25] MEDS: Electrolyte Replacement Protocol 1 EACH IVPB ONE (11:06)
[2025-02-25] MEDS: D5 1/2 NS w/20 mEq KCL 1,000 ML IV SCH (11:13)
[2025-02-25 15:29] LABS: Cocaine Metabolite Screen Negative (Negative); THC/Cannabinoid Screen Negative (Negative); Tricyclic Screen Negative (Negative)
[2025-02-25 20:33] LABS: Anion Gap 18 mmol/L (10-20); BUN (Urea Nitrogen) 27 mg/dL (9.8-20.1); Calc. Creatinine Clearance 32 mL/min (70-130); Calcium 8.5 mg/dL (7.8-10.44); Carbon Dioxide 15 mmol/L (23-31); Chloride 121 mmol/L (98-107); Glucose 188 mg/dL (83-110); Potassium 4.7 mmol/L (3.5-5.1); Sodium 149 mmol/L (136-145)
[2025-02-25] MEDS: cefTRIAXone\\ROCEPHIN 2 GM in Sodium Chloride 0.9% 100 ML IVPB SCH (23:57)
[2025-02-26 03:37] LABS: #Basophils 0.03 10x3/uL (0.0-0.2); #Eosinophils 0.05 10x3/uL (0.0-0.7); #Monocytes 1.27 10x3/uL (0.11-0.59); #Neutrophils 12.15 10x3/uL (1.40-6.50); %Basophils 0.2 % (0.0-1.0); %Eosinophils 0.3 % (0.0-10.0); %Lymphocytes 14.2 % (21.0-51.0); %Monocytes 8.0 % (0.0-10.0); %Neutrophils 76.9 % (42.0-75.0); Hematocrit 31.7 % (36.0-47.0); Hemoglobin 9.8 g/dL (12.0-16.0); Mean Corpuscular Hemoglobin 28.6 pg (27.0-31.0); Mean Corpuscular Volume 92.4 fL (78.0-98.0); Platelet Count 316 10x3/uL (130-400); Red Blood Cell (RBC) Count 3.43 mill/uL (4.20-5.40); White Blood Cell (WBC) Count 15.80 10x3/uL (4.8-10.8)
[2025-02-26 03:52] LABS: Anion Gap 14 mmol/L (10-20); BUN (Urea Nitrogen) 24 mg/dL (9.8-20.1); Calc. Creatinine Clearance 32 mL/min (70-130); Calcium 8.5 mg/dL (7.8-10.44); Carbon Dioxide 18 mmol/L (23-31); Chloride 116 mmol/L (98-107); Glucose 225 mg/dL (83-110); Magnesium 1.4 mg/dL (1.6-2.6); Potassium 4.3 mmol/L (3.5-5.1); Sodium 144 mmol/L (136-145)
[2025-02-26] MEDS: Magnesium 2 GM/50 ML(in water) 2 GM in Premix 1 BAG IVPB PRN (06:27)
[2025-02-26] MEDS: hydrALAZINE 20 MG/ML VIAL SLOW IVP PRN (16:52)
[2025-02-26] MEDS: Magnesium 2 GM/50 ML(in water) 2 GM in Premix 1 BAG IVPB SCH (19:00)
[2025-02-27 03:01] LABS: #Basophils 0.03 10x3/uL (0.0-0.2); #Eosinophils 0.05 10x3/uL (0.0-0.7); #Monocytes 0.65 10x3/uL (0.11-0.59); #Neutrophils 9.72 10x3/uL (1.40-6.50); %Basophils 0.2 % (0.0-1.0); %Eosinophils 0.4 % (0.0-10.0); %Lymphocytes 12.6 % (21.0-51.0); %Monocytes 5.4 % (0.0-10.0); %Neutrophils 80.3 % (42.0-75.0); Hematocrit 25.6 % (36.0-47.0); Hemoglobin 8.0 g/dL (12.0-16.0); Mean Corpuscular Hemoglobin 28.7 pg (27.0-31.0); Mean Corpuscular Volume 91.8 fL (78.0-98.0); Platelet Count 263 10x3/uL (130-400); Red Blood Cell (RBC) Count 2.79 mill/uL (4.20-5.40); White Blood Cell (WBC) Count 12.11 10x3/uL (4.8-10.8)
[2025-02-27 03:40] LABS: Anion Gap 17 mmol/L (10-20); BUN (Urea Nitrogen) 21 mg/dL (9.8-20.1); Calc. Creatinine Clearance 30 mL/min (70-130); Calcium 7.8 mg/dL (7.8-10.44); Carbon Dioxide 16 mmol/L (23-31); Chloride 112 mmol/L (98-107); Glucose 213 mg/dL (83-110); Potassium 3.7 mmol/L (3.5-5.1); Sodium 141 mmol/L (136-145)
[2025-02-27] MEDS: Vancomycin HCl 1.25 GM in Sodium Chloride 0.9% 250 ML 250 ML IVPB SCH (13:17)
[2025-02-27] MEDS: Vancomycin (BATCH) 1.25 GM in Premix 1 BAG IVPB SCH (13:19)
[2025-02-27] MEDS: Mupirocin 1 GM TUBE NASAL DECOLONIZATION NASAL SCH (20:13)
[2025-02-28 04:48] LABS: #Basophils Less than 0.03 10x3/uL (0.0-0.2); #Eosinophils 0.10 10x3/uL (0.0-0.7); #Monocytes 0.61 10x3/uL (0.11-0.59); #Neutrophils 8.78 10x3/uL (1.40-6.50); %Basophils 0.2 % (0.0-1.0); %Eosinophils 0.9 % (0.0-10.0); %Lymphocytes 12.6 % (21.0-51.0); %Monocytes 5.6 % (0.0-10.0); %Neutrophils 80.0 % (42.0-75.0); Hematocrit 26.2 % (36.0-47.0); Hemoglobin 8.3 g/dL (12.0-16.0); Mean Corpuscular Hemoglobin 28.6 pg (27.0-31.0); Mean Corpuscular Volume 90.3 fL (78.0-98.0); Platelet Count 269 10x3/uL (130-400); Red Blood Cell (RBC) Count 2.90 mill/uL (4.20-5.40); White Blood Cell (WBC) Count 10.97 10x3/uL (4.8-10.8)
[2025-02-28 04:55] LABS: Anion Gap 15 mmol/L (10-20); BUN (Urea Nitrogen) 18 mg/dL (9.8-20.1); Calc. Creatinine Clearance 33 mL/min (70-130); Calcium 8.0 mg/dL (7.8-10.44); Carbon Dioxide 17 mmol/L (23-31); Chloride 114 mmol/L (98-107); Glucose 113 mg/dL (83-110); Potassium 3.8 mmol/L (3.5-5.1); Sodium 142 mmol/L (136-145)
[2025-02-28 04:56] LABS: Vancomycin, Random 15.7 ug/mL (See Comment)
[2025-02-28] MEDS: FLU (Fluad Triv) 25-26 (65UP)PF 45 MCG/0.5 ML Syringe IM ONE (08:41)
[2025-02-28] MEDS ORDERED: Vancomycin HCl 750 MG in Sodium Chloride 0.9% 250 ML 250 ML IVPB SCH (13:00)
[2025-02-28] MEDS ORDERED: PHOS-NAK 1 PKT PACK PER TUBE PRN (19:53)
[2025-02-28] MEDS ORDERED: Potassium Bicarbonate/Cit Ac 20 MEQ TAB PER TUBE PRN (19:54)
[2025-03-01 04:49] LABS: #Basophils Less than 0.03 10x3/uL (0.0-0.2); #Eosinophils 0.08 10x3/uL (0.0-0.7); #Monocytes 0.60 10x3/uL (0.11-0.59); #Neutrophils 7.69 10x3/uL (1.40-6.50); %Basophils 0.2 % (0.0-1.0); %Eosinophils 0.8 % (0.0-10.0); %Lymphocytes 11.3 % (21.0-51.0); %Monocytes 6.3 % (0.0-10.0); %Neutrophils 80.8 % (42.0-75.0); Hematocrit 27.5 % (36.0-47.0); Hemoglobin 8.4 g/dL (12.0-16.0); Mean Corpuscular Hemoglobin 28.4 pg (27.0-31.0); Mean Corpuscular Volume 92.9 fL (78.0-98.0); Platelet Count 324 10x3/uL (130-400); Red Blood Cell (RBC) Count 2.96 mill/uL (4.20-5.40); White Blood Cell (WBC) Count 9.53 10x3/uL (4.8-10.8)
[2025-03-01 05:04] LABS: Anion Gap 17 mmol/L (10-20); BUN (Urea Nitrogen) 22 mg/dL (9.8-20.1); Calc. Creatinine Clearance 29 mL/min (70-130); Calcium 8.1 mg/dL (7.8-10.44); Carbon Dioxide 14 mmol/L (23-31); Cardiac Risk 3.7 (Less than 4.5); Chloride 112 mmol/L (98-107); Cholesterol 130 mg/dl (< 200 Desired); Glucose 135 mg/dL (83-110); HDL Cholesterol 35 mg/dL (>60 Neg Risk); LDL Cholesterol, Calculated 71 mg/dL; Potassium 3.9 mmol/L (3.5-5.1); Sodium 139 mmol/L (136-145); Triglycerides 122 mg/dL (Less than 150)
[2025-03-01] MEDS: Dexamethasone 10 MG/ML VIAL SLOW IVP SCH (10:23)
[2025-03-01] MEDS: Carvedilol 6.25 MG TAB PO SCH (17:22)
[2025-03-01] MEDS: Heparin 5,000 UNITS/ML VIAL SC SCH (20:52)
[2025-03-02 04:32] LABS: Anion Gap 17 mmol/L (10-20); BUN (Urea Nitrogen) 31 mg/dL (9.8-20.1); Calc. Creatinine Clearance 26 mL/min (70-130); Calcium 8.4 mg/dL (7.8-10.44); Carbon Dioxide 12 mmol/L (23-31); Chloride 113 mmol/L (98-107); Glucose 170 mg/dL (83-110); Potassium 3.9 mmol/L (3.5-5.1); Sodium 138 mmol/L (136-145)
[2025-03-02] MEDS: Dexamethasone 10 MG/ML VIAL SLOW IVP SCH (11:14)
[2025-03-02] MEDS: Pantoprazole 40 MG VIAL IVP SCH (11:15)
[2025-03-03 05:14] LABS: Anion Gap 18 mmol/L (10-20); BUN (Urea Nitrogen) 29 mg/dL (9.8-20.1); Calc. Creatinine Clearance 27 mL/min (70-130); Calcium 8.6 mg/dL (7.8-10.44); Carbon Dioxide 14 mmol/L (23-31); Chloride 113 mmol/L (98-107); Glucose 275 mg/dL (83-110); Potassium 4.2 mmol/L (3.5-5.1); Sodium 141 mmol/L (136-145)
[2025-03-03] MEDS: hydrALAZINE 20 MG/ML VIAL SLOW IVP SCH (16:02)
[2025-03-04 05:53] LABS: Anion Gap 16 mmol/L (10-20); BUN (Urea Nitrogen) 28 mg/dL (9.8-20.1); Calc. Creatinine Clearance 32 mL/min (70-130); Calcium 8.2 mg/dL (7.8-10.44); Carbon Dioxide 20 mmol/L (23-31); Chloride 111 mmol/L (98-107); Glucose 132 mg/dL (83-110); Potassium 3.8 mmol/L (3.5-5.1); Sodium 143 mmol/L (136-145)
[2025-03-04] MEDS ORDERED: LYTES IV SCH (07:45)
[2025-03-04] MEDS ORDERED: CLINIMIX IV SCH (07:45)
[2025-03-04] MEDS: D5W-AA 4.25% with LYTES 1,000 ML IV SCH (11:02)
[2025-03-04 12:08] LABS: Magnesium 1.6 mg/dL (1.6-2.6)
[2025-03-04] MEDS: Magnesium 2 GM/50 ML(in water) 2 GM in Premix 1 BAG IVPB SCH (15:06)
[2025-03-04] MEDS: Cyanocobalamin (Vitamin B-12) 1,000 MCG TAB PO SCH (21:12)
[2025-03-04] MEDS: Cholecalciferol 1,000 UNITS (25 MCG) TAB PO SCH (21:12)
[2025-03-05 04:01] LABS: #Basophils Less than 0.03 10x3/uL (0.0-0.2); #Eosinophils 0.05 10x3/uL (0.0-0.7); #Monocytes 0.73 10x3/uL (0.11-0.59); #Neutrophils 4.90 10x3/uL (1.40-6.50); %Basophils 0.1 % (0.0-1.0); %Eosinophils 0.7 % (0.0-10.0); %Lymphocytes 21.7 % (21.0-51.0); %Monocytes 9.9 % (0.0-10.0); %Neutrophils 66.4 % (42.0-75.0); Hematocrit 25.2 % (36.0-47.0); Hemoglobin 7.9 g/dL (12.0-16.0); Mean Corpuscular Hemoglobin 28.7 pg (27.0-31.0); Mean Corpuscular Volume 91.6 fL (78.0-98.0); Platelet Count 321 10x3/uL (130-400); Red Blood Cell (RBC) Count 2.75 mill/uL (4.20-5.40); White Blood Cell (WBC) Count 7.38 10x3/uL (4.8-10.8)
[2025-03-05 04:41] LABS: Anion Gap 12 mmol/L (10-20); BUN (Urea Nitrogen) 32 mg/dL (9.8-20.1); Calc. Creatinine Clearance 39 mL/min (70-130); Calcium 8.2 mg/dL (7.8-10.44); Carbon Dioxide 22 mmol/L (23-31); Chloride 112 mmol/L (98-107); Glucose 206 mg/dL (83-110); Magnesium 2.1 mg/dL (1.6-2.6); Potassium 3.9 mmol/L (3.5-5.1); Sodium 142 mmol/L (136-145)
[2025-03-06] MEDS: hydrALAZINE 20 MG/ML VIAL SLOW IVP PRN (03:03)
[2025-03-06 05:11] LABS: #Basophils Less than 0.03 10x3/uL (0.0-0.2); #Eosinophils 0.11 10x3/uL (0.0-0.7); #Monocytes 0.59 10x3/uL (0.11-0.59); #Neutrophils 4.39 10x3/uL (1.40-6.50); %Basophils 0.3 % (0.0-1.0); %Eosinophils 1.7 % (0.0-10.0); %Lymphocytes 20.4 % (21.0-51.0); %Monocytes 9.1 % (0.0-10.0); %Neutrophils 67.4 % (42.0-75.0); Hematocrit 27.5 % (36.0-47.0); Hemoglobin 8.8 g/dL (12.0-16.0); Mean Corpuscular Hemoglobin 28.9 pg (27.0-31.0); Mean Corpuscular Volume 90.2 fL (78.0-98.0); Platelet Count 345 10x3/uL (130-400); Red Blood Cell (RBC) Count 3.05 mill/uL (4.20-5.40); White Blood Cell (WBC) Count 6.51 10x3/uL (4.8-10.8)
[2025-03-06 05:33] LABS: ALT (SGPT) 11 U/L (Less than 34); AST (SGOT) 17 U/L (11-34); Albumin 2.2 g/dL (3.1-4.5); Alkaline Phosphatase 56 U/L (40-110); Anion Gap 19 mmol/L (10-20); BUN (Urea Nitrogen) 38 mg/dL (9.8-20.1); Bilirubin, Total 0.2 mg/dL (0.3-1.2); Calc. Creatinine Clearance 45 mL/min (70-130); Calcium 8.5 mg/dL (7.8-10.44); Carbon Dioxide 18 mmol/L (23-31); Chloride 109 mmol/L (98-107); Globulin 3.6 g/dL (2.4-3.5); Glucose 213 mg/dL (83-110); Magnesium 1.9 mg/dL (1.6-2.6); Potassium 4.6 mmol/L (3.5-5.1); Sodium 141 mmol/L (136-145)
[2025-03-06] MEDS: levETIRAcetam 500 MG (5 mL) VIAL SLOW IVP SCH (09:17)
[2025-03-06] MEDS: Carvedilol 6.25 MG TAB PER TUBE SCH (17:11)
[2025-03-06] MEDS: Cholecalciferol 1,000 UNITS (25 MCG) TAB PER TUBE SCH (20:38)
[2025-03-06] MEDS: Cyanocobalamin (Vitamin B-12) 1,000 MCG TAB PER TUBE SCH (20:38)
[2025-03-07 04:14] LABS: #Basophils Less than 0.03 10x3/uL (0.0-0.2); #Eosinophils 0.10 10x3/uL (0.0-0.7); #Monocytes 0.46 10x3/uL (0.11-0.59); #Neutrophils 4.21 10x3/uL (1.40-6.50); %Basophils 0.3 % (0.0-1.0); %Eosinophils 1.7 % (0.0-10.0); %Lymphocytes 17.6 % (21.0-51.0); %Monocytes 7.8 % (0.0-10.0); %Neutrophils 71.9 % (42.0-75.0); Hematocrit 28.0 % (36.0-47.0); Hemoglobin 8.6 g/dL (12.0-16.0); Mean Corpuscular Hemoglobin 28.1 pg (27.0-31.0); Mean Corpuscular Volume 91.5 fL (78.0-98.0); Platelet Count 363 10x3/uL (130-400); Red Blood Cell (RBC) Count 3.06 mill/uL (4.20-5.40); White Blood Cell (WBC) Count 5.86 10x3/uL (4.8-10.8)
[2025-03-07 04:37] LABS: Anion Gap 14 mmol/L (10-20); BUN (Urea Nitrogen) 30 mg/dL (9.8-20.1); Calc. Creatinine Clearance 43 mL/min (70-130); Calcium 8.3 mg/dL (7.8-10.44); Carbon Dioxide 19 mmol/L (23-31); Chloride 110 mmol/L (98-107); Glucose 241 mg/dL (83-110); Magnesium 1.9 mg/dL (1.6-2.6); Potassium 4.3 mmol/L (3.5-5.1); Sodium 139 mmol/L (136-145)
[2025-03-07 06:35] VITALS: BMI 19.1
[2025-03-08 06:37] LABS: Anion Gap 11 mmol/L (10-20); BUN (Urea Nitrogen) 25 mg/dL (9.8-20.1); Calc. Creatinine Clearance 43 mL/min (70-130); Calcium 8.4 mg/dL (7.8-10.44); Carbon Dioxide 21 mmol/L (23-31); Chloride 113 mmol/L (98-107); Glucose 212 mg/dL (83-110); Potassium 4.1 mmol/L (3.5-5.1); Sodium 141 mmol/L (136-145)
[2025-03-08] MEDS: Insulin Glargine 30 UNITS/0.3 ML VIAL SC SCH (09:09)
[2025-03-08 12:11] VITALS: BMI 19.1
[2025-03-08] MEDS: Carvedilol 6.25 MG TAB PER TUBE SCH (16:55)
[2025-03-09 07:22] LABS: #Basophils Less than 0.03 10x3/uL (0.0-0.2); #Eosinophils 0.06 10x3/uL (0.0-0.7); #Monocytes 0.53 10x3/uL (0.11-0.59); #Neutrophils 4.98 10x3/uL (1.40-6.50); %Basophils 0.1 % (0.0-1.0); %Eosinophils 0.9 % (0.0-10.0); %Lymphocytes 17.6 % (21.0-51.0); %Monocytes 7.8 % (0.0-10.0); %Neutrophils 73.0 % (42.0-75.0); Hematocrit 25.6 % (36.0-47.0); Hemoglobin 7.9 g/dL (12.0-16.0); Mean Corpuscular Hemoglobin 28.8 pg (27.0-31.0); Mean Corpuscular Volume 93.4 fL (78.0-98.0); Platelet Count 304 10x3/uL (130-400); Red Blood Cell (RBC) Count 2.74 mill/uL (4.20-5.40); White Blood Cell (WBC) Count 6.82 10x3/uL (4.8-10.8)
[2025-03-09 07:43] LABS: Anion Gap 12 mmol/L (10-20); BUN (Urea Nitrogen) 23 mg/dL (9.8-20.1); Calc. Creatinine Clearance 43 mL/min (70-130); Calcium 8.1 mg/dL (7.8-10.44); Carbon Dioxide 20 mmol/L (23-31); Chloride 115 mmol/L (98-107); Glucose 124 mg/dL (83-110); Magnesium 1.9 mg/dL (1.6-2.6); Potassium 3.9 mmol/L (3.5-5.1); Sodium 143 mmol/L (136-145)
[2025-03-09] MEDS ORDERED: Glycopyrrolate 0.2 MG/ML 5 ML SYRINGE ONE (08:52)
[2025-03-09] MEDS: PHOS-NAK 1 PKT PACK PER TUBE SCH (17:02)
[2025-03-10 05:43] LABS: Anion Gap 14 mmol/L (10-20); BUN (Urea Nitrogen) 27 mg/dL (9.8-20.1); Calc. Creatinine Clearance 38 mL/min (70-130); Calcium 8.0 mg/dL (7.8-10.44); Carbon Dioxide 18 mmol/L (23-31); Chloride 112 mmol/L (98-107); Glucose 273 mg/dL (83-110); Potassium 4.4 mmol/L (3.5-5.1); Sodium 140 mmol/L (136-145)
[2025-03-10] MEDS ORDERED: Magnesium Sulfate In Water 4 GM in Premix 1 BAG IVPB PRN (16:15)
[2025-03-10] MEDS ORDERED: PHOS-NAK 1 PKT PACK PO PRN (16:15)
[2025-03-10] MEDS ORDERED: Potassium Chloride 20 MEQ in Premix 1 BAG IVPB PRN (16:15)
[2025-03-11] MEDS ORDERED: Carvedilol 25 MG TAB PER TUBE SCH (21:00)
[2025-03-11] MEDS: levETIRAcetam 500 mg/5 ml Oral Solution PER TUBE SCH (21:37)
[2025-03-11] MEDS: Carvedilol 25 MG TAB PER TUBE SCH (21:38)
[2025-03-11] MEDS: Thiamine 100 MG TAB PER TUBE SCH (21:38)
[2025-03-12 06:54] LABS: #Basophils Less than 0.03 10x3/uL (0.0-0.2); #Eosinophils 0.07 10x3/uL (0.0-0.7); #Monocytes 0.45 10x3/uL (0.11-0.59); #Neutrophils 3.63 10x3/uL (1.40-6.50); %Basophils 0.4 % (0.0-1.0); %Eosinophils 1.4 % (0.0-10.0); %Lymphocytes 16.7 % (21.0-51.0); %Monocytes 8.9 % (0.0-10.0); %Neutrophils 72.2 % (42.0-75.0); Hematocrit 27.8 % (36.0-47.0); Hemoglobin 8.5 g/dL (12.0-16.0); Mean Corpuscular Hemoglobin 28.7 pg (27.0-31.0); Mean Corpuscular Volume 93.9 fL (78.0-98.0); Platelet Count 314 10x3/uL (130-400); Red Blood Cell (RBC) Count 2.96 mill/uL (4.20-5.40); White Blood Cell (WBC) Count 5.03 10x3/uL (4.8-10.8)
[2025-03-12 07:10] LABS: Anion Gap 10 mmol/L (10-20); BUN (Urea Nitrogen) 24 mg/dL (9.8-20.1); Calc. Creatinine Clearance 46 mL/min (70-130); Calcium 8.1 mg/dL (7.8-10.44); Carbon Dioxide 21 mmol/L (23-31); Chloride 110 mmol/L (98-107); Glucose 267 mg/dL (83-110); Magnesium 1.8 mg/dL (1.6-2.6); Potassium 4.8 mmol/L (3.5-5.1); Sodium 136 mmol/L (136-145)
[2025-03-12] MEDS: Aspirin Chewable 81 MG TAB PER TUBE SCH (09:45)
[2025-03-13] MEDS ORDERED: Lansoprazole 30 MG/10 ML UDCUP PER TUBE SCH (09:00)
[2025-03-13] MEDS: Lansoprazole 30 MG/10 ML UDCUP PER TUBE SCH (15:44)
[2025-03-14] MEDS: Lansoprazole 30 MG/10 ML UDCUP PER TUBE SCH (09:06)
[2025-03-15 11:55] VITALS: BP 102/59; TEMP 97.3
== END 2025-03-15 13:40 | disposition hospice, home (50) | DRG 637 ==
LOC: ERS 22:01 → CCU 02-25 00:32 → IMCU/EMU 03-01 20:00 → T4-B 03-07 14:36
PROVIDERS: ADMIT Internal Medicine; ATTEND Internal Medicine
PROC: 5A1945Z Respiratory Ventilation, 24-96 Consecutive Hours (ICD-10-PCS; principal; 2025-02-25)
PROC: XX20X89 Monitoring of Brain Electrical Activity, Computer-aided Detection and Notification, New Technology Group 9 (ICD-10-PCS; 2025-02-25)
PROC: XX20X89 Monitoring of Brain Electrical Activity, Computer-aided Detection and Notification, New Technology Group 9 (ICD-10-PCS; 2025-02-28)
PROC: 0DH63UZ Insertion of Feeding Device into Stomach, Percutaneous Approach (ICD-10-PCS; 2025-03-09)
PROC: 3E0G76Z Introduction of Nutritional Substance into Upper GI, Via Natural or Artificial Opening (ICD-10-PCS; 2025-03-09)
DX: E11.10 Type 2 diabetes mellitus with ketoacidosis without coma (principal); A41.9 Sepsis, unspecified organism; J96.01 Acute respiratory failure with hypoxia; G93.41 Metabolic encephalopathy; I63.89 Other cerebral infarction; N17.9 Acute kidney failure, unspecified; N30.00 Acute cystitis without hematuria; E87.0 Hyperosmolality and hypernatremia; G93.1 Anoxic brain damage, not elsewhere classified; D32.9 Benign neoplasm of meninges, unspecified; G40.901 Epilepsy, unspecified, not intractable, with status epilepticus; D32.0 Benign neoplasm of cerebral meninges; I16.0 Hypertensive urgency; I12.9 Hypertensive chronic kidney disease with stage 1 through stage 4 chronic kidney disease, or unspecified chronic kidney disease; N18.30 Chronic kidney disease, stage 3 unspecified; E87.8 Other disorders of electrolyte and fluid balance, not elsewhere classified; R91.1 Solitary pulmonary nodule; E78.5 Hyperlipidemia, unspecified; D63.1 Anemia in chronic kidney disease; E11.22 Type 2 diabetes mellitus with diabetic chronic kidney disease; E87.5 Hyperkalemia; F03.90 Unspecified dementia, unspecified severity, without behavioral disturbance, psychotic disturbance, mood disturbance, and anxiety; Z79.899 Other long term (current) drug therapy; Z86.73 Personal history of transient ischemic attack (TIA), and cerebral infarction without residual deficits; Z51.5 Encounter for palliative care; Z79.82 Long term (current) use of aspirin
CPT/HCPCS: 31500; 36415; 36416; 36600; 70450; 70496; 70498; 70553; 71045; 74018; 76376; 80048; 80053; 80061; 80202; 80306; 81001; 82010; 82805; 83036; 83605; 83735; 83880; 83930; 84100; 84146; 84484; 85025; 85610; 85730; 87040; 87077; 87086; 87149; 87186; 93005; 93306; 94002; 94003; 94760; 95705; 95813; 95816; 95819; 96365; 96374; 96375; 99292; A4217; B4087; C9254; J0360; J0696; J1100; J1644; J1815; J1953; J2060; J2470; J2704; J3010; J3373; J3411; J3475; J3480; J7030; J7050; J7070; J7120; Q9967